=== PATIENT | female | born 1995 | race Caucasian/White ===

== ENCOUNTER 2021-11-04 10:48 | Inpatient (IN) | payer OTHER ==
[~2021-11-04] VITALS: Ht 165.1 cm; Wt 96.2 kg
[2021-11-04 12:20] LABS: BASOPHIL 0.7 % (0-2); EOSINOPHIL 3.2 % (0-5); HCT 40.2 % (37.0-47.0); HGB 13.1 g/dl (12.5-16.0); LYMPHOCYTE 3.6 % (15-48); MCH 27.8 pg (25.0-31.0); MCHC 32.6 g/dL (32.0-36.0); MCV 85.2 fL (78.0-100.0); MONOCYTE 2.8 % (0-12); NEUTROPHIL 89.2 % (41-80); NRBC 0; PLT 388 K/uL (150-400); RBC 4.72 M/uL (4.20-5.40); RDW 12.7 % (11.5-14.0); WBC 17.7 K/uL (4.0-10.5)
[2021-11-04 12:40] LABS: INR 1.11 (0.9-1.2); PROTHROMBIN TIME 13.7 SECONDS (11.8-13.4); PTT 27.1 SECONDS (24.4-34.7)
[2021-11-04 12:41] LABS: D-DIMER 0.83 ug/mLFEU (0.00-0.41)
[2021-11-04 12:56] LABS: CORONAVIRUS 2019 SARS-COV-2 NEGATIVE (NEGATIVE); INFLUENZA A NAA NEGATIVE (NEGATIVE)
[2021-11-04 13:15] LABS: ALBUMIN 3.7 g/dL (3.4-5.0); BILIRUBIN - TOTAL 0.4 mg/dL (0.2-1.0); C-REACTIVE PROTEIN 4.8 mg/dL (<=0.90); CREATININE 0.75 mg/dL (0.51-0.95); MAGNESIUM 2.3 mg/dL (1.8-2.4); POTASSIUM 3.9 mmol/L (3.5-5.1); TOTAL PROTEIN 7.7 g/dL (6.4-8.2)
[2021-11-04 13:24] LABS: LACTIC ACID 0.9 mmol/L (0.4-1.9)
[2021-11-04 15:47] LABS: BILIRUBIN NEGATIVE (NEGATIVE); BLOOD TRACE-INTACT Ery/uL (NEGATIVE); CLARITY CLEAR (CLEAR); COLOR YELLOW (YELLOW); GLUCOSE (U) NORMAL (NORMAL); LEUKOCYTES NEGATIVE Leu/uL (NEGATIVE); NITRITE NEGATIVE (NEGATIVE); PROTEIN NEGATIVE (NEGATIVE); SPECIFIC GRAVITY <=1.005 (1.001-1.030); UROBILINOGEN 0.2 mg/dL (0.2-1.0)
[2021-11-04 16:04] LABS: BACTERIA TRACE; URINARY RBC RARE
[2021-11-04] MEDS ORDERED: PROZAC40 MG PO (23:23)
[2021-11-04] MEDS ORDERED: VITAMIN D3 COM1 EACH PO (23:25)
[2021-11-04] MEDS ORDERED: VYVANSE30 MG PO (23:25)
[2021-11-04] MEDS ORDERED: FLOVENT HF120 PUFFS/ INH (23:25)
[2021-11-04] MEDS ORDERED: JOLESSA 0.15 M1 EACH PO (23:26)
[2021-11-04] MEDS ORDERED: REXULTI2 MG PO (23:26)
[2021-11-05 06:43] LABS: BASOPHIL 0.1 % (0-2); EOSINOPHIL 0.1 % (0-5); HCT 37.6 % (37.0-47.0); LYMPHOCYTE 6.8 % (15-48); MCH 27.3 pg (25.0-31.0); MCHC 31.9 g/dL (32.0-36.0); MCV 85.6 fL (78.0-100.0); MONOCYTE 1.8 % (0-12); MPV 10.4 fL (6.0-9.5); NEUTROPHIL 90.7 % (41-80); NRBC 0; PLT 370 K/uL (150-400); RBC 4.39 M/uL (4.20-5.40); RDW 12.9 % (11.5-14.0)
[2021-11-05 07:00] LABS: WBC 12.7 K/uL (4.0-10.5)
[2021-11-05 07:11] LABS: BUN/CREAT RATIO (CALC) 15.5 RATIO; CREATININE 0.58 mg/dL (0.51-0.95); MAGNESIUM 2.3 mg/dL (1.8-2.4); POTASSIUM 3.8 mmol/L (3.5-5.1)
--- NOTE | 2021-11-06 14:42 | NUR ---
PT STATED THAT WRONG DOSE OF VYVANSE WAS BROUGHT TO HOSPITAL. NEW BOTTLE OF 40MG OBTAINED AND GIVEN TO PHARMACY TO LABEL. ONE 30MG CAPSULE GIVEN BACK TO PATIENT
--- NOTE | 2021-11-06 15:28 | NUR ---
11/06/21 Ms. Coppola and her former boyfriend co-own a home. They also have a roommate. 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 She is followed at [facility] for medication management and [facility] in [place] for therapy. SShe plans to change to a therapist at [facility] - Ms. Coppola denies suicidal ideations, intentions, or plans. She reports to have a crisis hotline. - She chose [facility] for any 02 needs.
--- NOTE | 2021-11-08 16:00 | NUR ---
11/08/21 Patient is no longer on 02. No discharge planning needs are anticipated.
[2021-11-09 04:44] LABS: BASOPHIL 0.5 % (0-2); EOSINOPHIL 0.1 % (0-5); HCT 36.8 % (37.0-47.0); HGB 11.9 g/dl (12.5-16.0); LYMPHOCYTE 10.6 % (15-48); MCH 27.7 pg (25.0-31.0); MCHC 32.3 g/dL (32.0-36.0); MCV 85.6 fL (78.0-100.0); MONOCYTE 5.1 % (0-12); MPV 9.9 fL (6.0-9.5); NEUTROPHIL 79.8 % (41-80); NRBC 0; PLT 334 K/uL (150-400); RDW 12.4 % (11.5-14.0); WBC 12.3 K/uL (4.0-10.5)
[2021-11-09 05:08] LABS: BUN/CREAT RATIO (CALC) 18.2 RATIO; CREATININE 0.55 mg/dL (0.51-0.95)
[2021-11-09] MEDS ORDERED: ADVAIR 500-501 EACH INH (09:47)
[2021-11-09] MEDS ORDERED: ALBUTEROL2.5 MG/3 M INH (09:48)
[2021-11-09] MEDS ORDERED: SINGULAIR10 MG PO (09:50)
[2021-11-09] MEDS ORDERED: VENTOLIN HFA IN18 GM INH (09:50)
[2021-11-09] MEDS ORDERED: CEFDINIR300 MG PO (09:50)
[2021-11-09] MEDS ORDERED: PREDNISONE 20MG20 MG PO (09:53)
== END 2021-11-09 12:11 | disposition home or self-care (01) | DRG 202 ==
LOC: FER 10:48 → FTCU 20:38 → FMS 11-08 08:18
PROVIDERS: Emergency Medicine; Hospitalist; Internal Medicine; ADMIT Internal Medicine
DX: J45.41 Moderate persistent asthma with (acute) exacerbation (principal); J12.9 Viral pneumonia, unspecified; F84.0 Autistic disorder; Z20.822 Contact with and (suspected) exposure to COVID-19; F90.9 Attention-deficit hyperactivity disorder, unspecified type; F41.9 Anxiety disorder, unspecified; F32.A Depression, unspecified; R09.02 Hypoxemia; R00.0 Tachycardia, unspecified; R07.2 Precordial pain; Z87.891 Personal history of nicotine dependence; Z79.899 Other long term (current) drug therapy
CPT/HCPCS: 36415; 36600; 71275; 80048; 80053; 81001; 82728; 82803; 83605; 83615; 83735; 83880; 84145; 84484; 85025; 85379; 85610; 85730; 86140; 87040; 93005; 94010; 94640; 94664; 94667; 94668; 94762; J0456; J0696; J1650; J2060; J2270; J2930; J7030; J7050; J7120; Q9967; U0002